=== PATIENT | female | born 1995 | race Two or more races ===

== ENCOUNTER 2018-03-19 13:42 | Emergency (ER) | payer MEDICAID ==
[2018-03-19] MEDS ORDERED: methylPREDNISolone SOD SUCC 125 MG/2 ML VIAL IVP ONE (13:51)
[2018-03-19] MEDS ORDERED: RANITIDINE 50 MG/2 ML VIAL IVP ONE (13:51)
[2018-03-19] MEDS ORDERED: EPINEPHrine 1 MG/ML INJ IM ONE (13:51)
[2018-03-19] MEDS ORDERED: IPRATROPIUM/ALBUTEROL 3 ML DEYVIAL ONE (13:55)
[2018-03-19] MEDS ORDERED: IPRATROPIUM/ALBUTEROL 3 ML DEYVIAL IH ONE (13:58)
--- NOTE | 2018-03-19 13:58 | EDPHY ---
H & P Stated Complaint: allergic reaction to almonds - Personal History LMP (Females 10-55): 15-21 Days Ago Current Tetanus Diphtheria and Acellular Pertussis (TDAP): Yes - Medical/Surgical History Hx Asthma: Yes Hx Chronic Respiratory Disease: No Hx Diabetes: No Hx Cardiac Disease: No Hx Renal Disease: No Hx Cirrhosis: No Hx Alcoholism: No Hx HIV/AIDS: No Hx Splenectomy or Spleen Trauma: No Other PMH: asthma - Social History Smoking Status: Never smoked Alcohol Use: Sober Time Seen by Provider: 03/19/18 13:51 HPI/ROS: CHIEF COMPLAINT: Anaphylaxis HISTORY OF PRESENT ILLNESS: 22-year-old female presents with anaphylaxis. She was eating almonds at 1100 and had immediate onset of facial swelling and itchiness. Associated with throat itchiness and wheezing. The wheezing is mild and she feels slightly short of breath. No rash or dizziness. No prior history of allergic reaction. No medications taken prior to arrival. REVIEW OF SYSTEMS: complete 10 point ROS reviewed and is negative except for the noted elements in the HPI (Katie Cummins) - Physical Exam Exam: General Appearance: Alert, no distress Eyes: Pupils equal and round, periorbital swelling present ENT, Mouth: Mucous membranes moist, no oral swelling Neck: Normal inspection, no stridor Respiratory: Lungs are clear to auscultation, diffuse expiratory wheezing Cardiovascular: Regular rate and rhythm Neurological: A&O, nonfocal, normal gait Skin: Normal inspection, no hives Extremities: No swelling Psychiatric: Mood and affect normal (Katie Cummins S) Constitutional: Initial Vital Signs Temperature (C) 36.5 C 03/19/18 13:46 Heart Rate 63 03/19/18 13:46 Respiratory Rate 18 03/19/18 13:46 Blood Pressure 179/95 H 03/19/18 13:46 O2 Sat (%) 96 03/19/18 13:46 O2 Delivery Mode Room Air Allergies/Adverse Reactions: almonds Allergy (Uncoded 03/19/18 13:46) Home Medications: Medication Instructions Recorded Albuterol 03/19/18 EPINEPHrine [Epipen 0.3 MG] 0.3 mg IM ONCE #2 syr 03/19/18 predniSONE 60 mg PO DAILY #9 tab 03/19/18 Medical Decision Making ED Course/Re-evaluation: Epinephrine 0.3 IM, followed by Solu-Medrol, Zantac and Benadryl IV. A DuoNeb was given for bronchospasm. 1430: feels better, eyelid swelling resolving, throat sx resolved. Chest CTA 1500: continues to feel better, drowsy. Chest CTA. Discharge instructions given by me. Will f/u branch controller. Signed over to Dr. Hansen at shift change to observe pt until 1600. If asymptomatic at 1600, plan is to discharge patient home. (Katie Cummins) Re-evaluation by me at 4:10 p.m.. Patient is stable. She feels her symptoms have resolved. She does not feel that any symptoms are progressing. She is speaking normally and in full sentences. She is up to the bathroom. She feels well to go home. (Gopi Hansen) Differential Diagnosis: Differential diagnosis includes though it is not limited to laryngeal edema, bronchospasm, hypotension, angioedema. (Katie Cummins) - Data Points Medications Given: Discontinued Medications Albuterol/Ipratropium (Duoneb) 3 ml IH EDNOW ONE Stop: 03/19/18 13:59 Last Admin: 03/19/18 13:56 Dose: 3 ml Diphenhydramine HCl (Benadryl Injection) 25 mg IVP EDNOW ONE Stop: 03/19/18 13:52 Last Admin: 03/19/18 13:58 Dose: 25 mg Epinephrine HCl (Epinephrine) 0.3 mg IM EDNOW ONE Stop: 03/19/18 13:52 Last Admin: 03/19/18 13:53 Dose: 0.3 mg Methylprednisolone Sodium Succinate (Solu-Medrol) 125 mg IVP EDNOW ONE Stop: 03/19/18 13:52 Last Admin: 03/19/18 13:58 Dose: 125 mg Ranitidine HCl (Zantac) 50 mg IVP EDNOW ONE Stop: 03/19/18 13:52 Last Admin: 03/19/18 13:58 Dose: 50 mg Departure - Departure Disposition: Home, Routine, Self-Care Clinical Impression: Acute anaphylaxis Qualifiers: Encounter type: initial encounter Qualified Code(s): T78.2XXA - Anaphylactic shock, unspecified, initial encounter Condition: Good Instructions: Anaphylaxis (ED) Additional Instructions: Take Claritin in the morning and Benadryl at night while the rash persists. Take prednisone as prescribed. Return for worsening symptoms or any concerns. Followup with an branch controller. Referrals: Victor Hugo Olson DO [Doctor of Osteopathy] - As per Instructions Prescriptions: EPINEPHrine [Epipen 0.3 MG] 0.3 mg IM ONCE #2 syr predniSONE 60 mg PO DAILY #9 tab
[2018-03-19 16:06] VITALS: BP 116/53
[2018-03-19] MEDS ORDERED: methylPREDNISolone SOD SUCC 125 MG/2 ML VIAL ONE (16:44)
[2018-03-19] MEDS ORDERED: EPINEPHrine KIT (USE FOR EPIPEN) 1 MG/ML IM ONE (16:44)
[2018-03-19] MEDS ORDERED: RANITIDINE 50 MG/2 ML VIAL ONE (16:44)
== END 2018-03-19 16:28 | disposition home or self-care (01) ==
DX: T78.05XA Anaphylactic reaction due to tree nuts and seeds, initial encounter (principal); M79.89 Other specified soft tissue disorders; L29.9 Pruritus, unspecified; J45.909 Unspecified asthma, uncomplicated
CPT/HCPCS: 96374; J0171; J1200; J2780; J2930

== ENCOUNTER 2018-07-31 21:59 | Emergency (ER) | payer MEDICAID ==
--- NOTE | 2018-07-31 22:09 | EDPHY ---
H & P Stated Complaint: ETOH intox and cocaine Time Seen by Provider: 07/31/18 22:03 HPI/ROS: Chief Complaint: Alcohol intoxication, cocaine ingestion HPI: 23-year-old female who was found at the [facility] intoxicated. Patient passed out after taking alcohol and using cocaine. Is unable to ambulate on their own. Patient brought in by EMS for further evaluation. Is unresponsive around. Tolerated a nasopharyngeal airway without any difficulty. No obvious signs of trauma per EMS. Remainder of history is unobtainable secondary to the patient's intoxication. ROS: Unobtainable secondary to the patient's intoxication PMH: Unknown Medications: Unknown Allergies: Unknown Social History: Positive for alcohol Family History: non-contributory Physical Exam: Gen: Somnolent, responds to painful stimuli, maintaining airway, smells of alcohol and emesis HEENT: Atraumatic Nose: no epistaxis or deformity Eyes: PERRLA, EOMI Mouth: Moist mucosa Neck: Supple, no step-offs or deformity Chest: Atraumatic, lungs clear to auscultation Heart: S1, S2 normal, no murmur Abd: Soft, non-tender, no guarding Back: Atraumatic Ext: no edema, atraumatic Skin: no rash Neuro: Sensation grossly intact, Strength 5/5 in bilateral upper and lower extremities - Personal History LMP (Females 10-55): Unknown Current Tetanus/Diphtheria Vaccine: Yes - Medical/Surgical History Hx Asthma: Yes Hx Chronic Respiratory Disease: No Hx Diabetes: No Hx Cardiac Disease: No Hx Renal Disease: No Hx Cirrhosis: No Hx Alcoholism: No Hx HIV/AIDS: No Hx Splenectomy or Spleen Trauma: No Other PMH: asthma - Social History Smoking Status: Never smoked Constitutional: Initial Vital Signs Temperature (C) 36.8 C 07/31/18 22:03 Heart Rate 97 07/31/18 22:03 Respiratory Rate 16 07/31/18 22:03 Blood Pressure 100/81 H 07/31/18 22:03 O2 Sat (%) 97 07/31/18 22:03 O2 Delivery Mode Room Air Allergies/Adverse Reactions: almonds Allergy (Uncoded 03/19/18 13:46) Home Medications: Medication Instructions Recorded Albuterol 03/19/18 Albuterol Hfa Anes Only [Proair 2 puffs IH QID PRN #1 mdi 03/19/18 Hfa Icu (*)] EPINEPHrine [Epipen 0.3 MG] 0.3 mg IM ONCE #2 syr 03/19/18 predniSONE 60 mg PO DAILY #9 tab 03/19/18 Medical Decision Making ED Course/Re-evaluation: Patient is now awake and appropriate. Ambulating unassisted to the bathroom. No current complaints. Patient is tolerating oral fluids. Patient is ready for discharge with sober ride. Departure - Departure Disposition: Home, Routine, Self-Care Clinical Impression: Alcoholic intoxication Condition: Good Instructions: Alcohol Intoxication (ED) Referrals: Patient,NotPresent [Unknown] - As per Instructions
[2018-08-01 02:29] VITALS: BP 110/72
== END 2018-08-01 02:27 | disposition home or self-care (01) ==
LOC: EDUNIT#
DX: F10.920 Alcohol use, unspecified with intoxication, uncomplicated (principal); F14.929 Cocaine use, unspecified with intoxication, unspecified